=== PATIENT | male | born 1995 | race Caucasian/White ===

== ENCOUNTER 2022-04-14 11:24 | Observation (INO) ==
[2022-04-14] MEDS ORDERED: SODIUM CHLORIDE 0.9% 1000ML 2,000 ML IV ONE (11:43)
[2022-04-14] MEDS ORDERED: GI COCKTAIL ED USE PO ONE (11:43)
[2022-04-14] MEDS ORDERED: ONDANSETRON INJ 2 MG/ML 2 ML VIAL IV STA (11:43)
[2022-04-14] MEDS ORDERED: KETOROLAC TROMETHAMINE 15 MG/ML VIAL IV ONE (11:44)
--- NOTE | 2022-04-14 11:46 | Emergency Department Note ---
Impression & Plan Abdominal pain, Epigastric pain, Vomiting, Thickening of wall of gallbladder ED Provider Note NAME: EULOGIO FIORE AGE: 26 SEX: M : 1995 ARRIVES VIA: Walk-In INFORMANT: Patient ED PROVIDER(S): Eulogio Wadsworth DO CHIEF COMPLAINT: abdominal pain HPI: Patient is a 26-year-old male who presents to the ER for epigastric abdominal pain. Started this morning around 4 AM. Associate with nausea and vomiting. Pain is about a 7 out of 10. Is worse with eating or drinking. He describes as a burning pain in the epigastric region that comes up into his chest. Feels better after vomiting. No dysuria, urgency, or frequency. He is having a large amount of diarrhea currently. He has had this once before but is unsure of what exactly caused it. No other sick contacts. ROS: See above HPI for pertinent positives & negatives. A total of 10 systems reviewed and were otherwise negative. PAST MEDICAL HISTORY:See Below PAST SURGICAL HISTORY:See Below FAMILY HISTORY:See Below SOCIAL HISTORY:See Below HOME MEDICATIONS:See Below ALLERGIES:See Below VITALS:See Below PHYSICAL EXAMINATION: GENERAL: Sitting up in bed, alert, well appearing, well nourished, no distress, non-toxic EYE EXAM: normal conjunctiva. OROPHARYNX: mucous membranes are moist NECK: supple, no nuchal rigidity, no adenopathy, non-tender LUNGS: Clear to auscultation. Normal chest wall mechanics HEART: no murmurs, S1 normal and S2 normal ABDOMEN: abdomen soft, mild TTP in epigastric region, normo-active bowel sounds, no masses, no rebound or guarding. UPPER EXTREMITIES: upper extremities are grossly normal. LOWER EXTREMITIES: No pitting edema. NEURO EXAM: Normal sensorium, cranial nerves II-XII grossly intact, normal speech, no gross weakness of arms, no gross weakness of legs. MEDICAL DECISION MAKING: Patient is a 26-year-old male who presents ER for epigastric abdominal pain. IV was established blood work was obtained. Labs show no significant leukocytosis or anemia. BMP along with LFTs bilirubin and lipase is unremarkable. UA with small amount of ketones suggesting dehydration. He was given IV fluids x 2 L of normal saline. He was given Zofran Toradol and a GI cocktail. He did feel better. Ultrasound the gallbladder showed gallbladder wall thickening combination with dilation of CBD. This was discussed with general surgery and patient was evaluated at bedside. Dr. Thakkar recommended [facility] and he will follow and evaluate. Discussed with Juan Carlos Rizzo for further evaluation from the hospital service. Patient was updated bedside. Triage Nursing notes reviewed. Limited review of prior medical records performed Vital Signs: reviewed and remarkable for no significant abnormalities Differential diagnosis: Differential diagnoses includes but is not limited to gastritis, peptic ulcer disease, GERD, gallbladder disease, pancreatitis, small bowel obstruction, acute coronary syndrome, pericarditis, ischemic bowel, irritable bowel disease, irritable bowel syndrome, appendicitis, diverticulitis, malignancy, hernia, urinary tract infection, torsion, perforation, trauma, infectious. ER treatment provided: See below Diagnostics interpreted by me: ECG: none Cardiac Monitoring: An order was placed for continuous cardiac monitoring. The monitor shows a rate of 60 with sinus rhythm. Laboratory studies: As stated above and show below. Imaging studies: Ultrasound as described above Consultation(s): Discussed with Dr. Bush from general surgery as stated above Discussed with Juan Carlos Rizzo as stated above from the hospital service Procedures: none Critical Care: None Past Med/Surg History Social History Smoking Status: Current every day smoker Tobacco Type: E-cigarettes / Vaping Feels Safe at Home: Yes Allergies Allergies Allergy/AdvReac Type Severity Reaction Status Date / Time No Known Allergies Allergy Verified 04/14/22 15:28 Home Meds Home Medications Medication Instructions Recorded Confirmed aluminum-mag hydroxide-simethicone 5 ml PO DIRECTED PRN 04/14/22 04/14/22 400 mg-400 mg-40 mg/5 mL oral susp (Mylanta Maximum Strength) calcium carbonate 200 mg calcium 400 mg PO DIRECTED PRN 04/14/22 04/14/22 (500 mg) chewable tablet (Tums) famotidine 10 mg tablet 10 mg PO DIRECTED PRN 04/14/22 04/14/22 famotidine 10 mg tablet 10 mg PO DIRECTED PRN 04/14/22 04/14/22 (Zantac-360 (famotidine)) omeprazole magnesium 20 mg 20 mg PO BID 04/14/22 04/14/22 tablet,delayed release (Prilosec OTC) pantoprazole 20 mg tablet,delayed 20 mg PO DIRECTED 04/14/22 04/14/22 release (Protonix) simethicone 80 mg chewable tablet 80 mg PO DIRECTED PRN 04/14/22 04/14/22 Results & Data (ED) Vital Signs Vital Signs - 24 hr 04/14/22 11:25 04/14/22 12:29 Temperature 36.6 C Temperature Source Temporal Artery Scan Pulse Rate 54 L 55 L Pulse Rhythm Regular Respiratory Rate 18 16 Respiratory Effort / Characteristics Non-Labored Non-Labored Respiratory Depth Normal Normal Blood Pressure 143/88 H Blood Pressure Mean 106 Pulse Oximetry 94 95 Oxygen Delivery Method Room Air Room Air Sepsis Recent Fever Within 48 Hours No Sepsis New/Unexplained Change in Mental Status No Sepsis Action Taken by Nursing No Action Required Laboratory Data Result diagrams: 04/14/22 11:52 04/14/22 11:52 Lab Results 04/14/22 04/14/22 04/14/22 Range/Units 11:52 11:52 11:52 WBC 8.75 (4.8-10.8) K/uL RBC 5.12 (4.7-6.1) M/uL Hgb 15.1 (14.0-18.0) g/dL Hct 42.9 (42-52) % MCV 83.8 (80-100) fL MCH 29.5 (25-34) pg MCHC 35.2 (32-36) g/dL RDW Std Deviation 37.4 (36.4-46.3) fL RDW Coeff of Brandi 12.3 (11.5-14.5) % Plt Count 215 (130-400) K/uL MPV 10.7 H (7.4-10.4) fL Immature Gran % (Auto) 0.2 % Neut % (Auto) 89.7 % Lymph % (Auto) 7.7 % Alfalfa % (Auto) 2.2 % Eos % (Auto) 0.1 % Baso % (Auto) 0.1 % Neut # (Auto) 7.85 H (1.4-6.5) K/uL Lymph # (Auto) 0.67 L (1.2-3.4) K/uL Alfalfa # (Auto) 0.19 (0.11-0.59) K/uL Eos # (Auto) 0.01 (0-0.5) K/uL Baso # (Auto) 0.01 (0-0.2) K/uL Immature Gran # (Auto) 0.02 (0.00-0.02) K/uL Sodium 140 (136-145) mmol/L Potassium 3.7 (3.5-5.1) mmol/L Chloride 105 (98-107) mmol/L Carbon Dioxide 28 (21-32) mmol/L Anion Gap 7 (3-11) BUN 10 (6-23) mg/dl Creatinine 0.83 (0.6-1.4) mg/dl Est Cr Clr Drug Dosing 125.7 ml/min Est GFR ( Amer) 139.8 ml/min Est GFR (Non-Af Amer) 120.6 ml/min BUN/Creatinine Ratio 12.0 (10-20) Glucose 123 H (70-99(Fasting)) mg/dl Calcium 9.9 (8.5-10.1) mg/dl Total Bilirubin 0.8 (0.2-1.0) mg/dl AST 15 (13-39) U/L ALT 15 (7-52) U/L Alkaline Phosphatase 55 (34-104) U/L Total Protein 8.2 (6.0-8.3) gm/dl Albumin 5.4 H (3.4-5.0) gm/dl Globulin 2.8 (2.5-4.0) gm/dl Albumin/Globulin Ratio 1.9 (0.9-2) Lipase 15 (11-82) U/L Urine Color Dark Yellow Urine Appearance Clear (Clear) Urine pH 7.5 (4.5-7.5) Ur Specific [place] 1.025 (1.000-1.030) Urine Protein Negative (Negative) Urine Glucose (UA) Negative (Negative) Urine Ketones 3+ H (Negative) Urine Blood Negative (Negative) Urine Nitrite Negative (Negative) Urine Bilirubin Negative (Negative) Urine Urobilinogen Negative (Negative) Ur Leukocyte Esterase Negative (Negative) Administered Medications Discontinued Medications Al Hydrox/Mg Hydrox/Simethicone (Gi Cocktail Ed Use) 1 dose PO ONE ONE Stop: 04/14/22 11:44 Last Admin: 04/14/22 12:11 Dose: 1 dose Documented by: [id number] Sodium Chloride (Nss 1000ml) 2,000 mls @ 999 mls/hr IV .Q2H1M ONE Stop: 04/14/22 13:43 Last Infusion: 04/14/22 15:27 Dose: 0 mls/hr Documented by: [id number] Admin: 04/14/22 12:12 Dose: 999 mls/hr Documented by: [id number] Ketorolac Tromethamine (Ketorolac Tromethamine 15 Mg/Ml Vial) 15 mg IV NOW ONE Stop: 04/14/22 11:45 Last Admin: 04/14/22 12:12 Dose: 15 mg Documented by: [id number] Ondansetron HCl (Ondansetron Inj 2 Mg/Ml 2 Ml Vial) 4 mg IV NOW STA Stop: 04/14/22 11:44 Last Admin: 04/14/22 12:12 Dose: 4 mg Documented by: [id number] Imaging Data Radiologist's Impression: Gallbladder Ultrasound 04/14/22 11:43 US gallbladder CLINICAL HISTORY: epigastric abd pain TECHNIQUE: Multiple real-time sonographic images of the right upper quadrant were obtained. Comparison: None available at the time of this dictation. FINDINGS: The liver is diffusely homogenous with normal contour and echogenicity. No focal mass lesions are seen. No intrahepatic ductal dilatation is seen. The gallbladder wall is edematous appearing measuring 3 mm in thickness. A sonographic Barr's sign was not elicited by the dumper central concrete mixing plant. The common duct measures 0.5 cm in diameter at the level of the hepatic artery. The visualized portions of the pancreas appear normal. Intrahepatic bile ducts appear dilated. The right kidney shows normal echogenicity, cortical thickness and renal contour. The right kidney shows no evidence of hydronephrosis or mass. No ascites or free fluid is seen in Fernández's pouch. IMPRESSION: There is mild edema of the gallbladder wall but Barr's sign is negative. No stones are seen. Intrahepatic biliary ductal dilation is seen. Findings are equivocal for acute cholecystitis. If clinical concern remains, MRCP can be p erformed. ACT 112: Negative or not required by law. Electronically signed by: Howard Sauceda M.D. 04/14/2022 2:31 PM Discharge Plan Visit Data Chief Complaint: GI Assessment Stated Complaint: HAVING BAD HEART BURN, VOMITING ED Provider: Eulogio Wadsworth Discharge Problem: Abdominal pain, Epigastric pain, Vomiting, Thickening of wall of gallbladder Forms Stand Alone Forms: My [employer] Prescriptions Prescriptions: No Action famotidine 10 mg Tablet 10 mg PO DIRECTED PRN (Reason: HEARTBURN/INDIGESTION) RF: 0 famotidine [Zantac-360 (famotidine)] 10 mg Tablet 10 mg PO DIRECTED PRN (Reason: HEARTBURN/INDIGESTION) RF: 0 pantoprazole [Protonix] 20 mg Tablet,Delayed Release (Dr/Ec) 20 mg PO DIRECTED RF: 0 calcium carbonate [Tums] 200 mg calcium (500 mg) Tablet,Chewable 400 mg PO DIRECTED PRN (Reason: HEARTBURN/INDIGESTION) RF: 0 alum-mag hydroxide-simeth [Mylanta Maximum Strength] 400-400-40 mg/5 mL Suspension 5 ml PO DIRECTED PRN (Reason: HEARTBURN/INDIGESTION) RF: 0 simethicone 80 mg Tablet,Chewable 80 mg PO DIRECTED PRN (Reason: HEARTBURN/INDIGESTION) RF: 0 omeprazole magnesium [Prilosec OTC] 20 mg Tablet,Delayed Release (Dr/Ec) 20 mg PO BID RF: 0 Referrals Referrals: Sarmad Barrios [Staff Physician] -
[2022-04-14 12:03] LABS: Basophils # (auto) 0.01 K/uL (0-0.2); Basophils % (auto) 0.1 %; Eosinophils # (auto) 0.01 K/uL (0-0.5); Eosinophils % (auto) 0.1 %; Hematocrit (blood only) 42.9 % (42-52); Hemoglobin 15.1 g/dL (14.0-18.0); Immature Granulocytes # (auto) 0.02 K/uL (0.00-0.02); Immature Granulocytes % (auto) 0.2 %; Lymphocytes # (auto) 0.67 K/uL (1.2-3.4); Lymphocytes % (auto) 7.7 %; Mean Corpuscular Hemoglobin 29.5 pg (25-34); Mean Corpuscular Hgb Conc 35.2 g/dL (32-36); Mean Corpuscular Volume 83.8 fL (80-100); Mean Platelet Volume 10.7 fL (7.4-10.4); Monocytes # (auto) 0.19 K/uL (0.11-0.59); Monocytes % (auto) 2.2 %; Neutrophils # (auto) 7.85 K/uL (1.4-6.5); Neutrophils % (auto) 89.7 %; Platelet Count 215 K/uL (130-400); RDW Coefficient of Variation 12.3 % (11.5-14.5); RDW Standard Deviation 37.4 fL (36.4-46.3); Red Blood Count 5.12 M/uL (4.7-6.1); White Blood Count 8.75 K/uL (4.8-10.8)
[2022-04-14 12:28] LABS: Albumin Globulin Ratio 1.9 (0.9-2); Albumin Level 5.4 gm/dl (3.4-5.0); Bilirubin,Total 0.8 mg/dl (0.2-1.0); Calcium 9.9 mg/dl (8.5-10.1); Creatinine Clr Calc Pharmacy 125.7 ml/min; Est GFR (African American) 139.8 ml/min; Est GFR (Non-African American) 120.6 ml/min; Globulin 2.8 gm/dl (2.5-4.0); Potassium 3.7 mmol/L (3.5-5.1); Total Protein 8.2 gm/dl (6.0-8.3)
[2022-04-14 12:50] LABS: Appearance Urine Clear (Clear); Bilirubin Urine Negative (Negative); Blood Urine Negative (Negative); Color Urine Dark Yellow; Glucose Urine UA Negative (Negative); Ketones Urine 3+ (Negative); Leukocyte Esterase Urine Negative (Negative); Nitrite Urine Negative (Negative); Protein Urine Negative (Negative); Specific Gravity Urine 1.025 (1.000-1.030); Urobilinogen Urine Negative (Negative); pH Urine 7.5 (4.5-7.5)
--- NOTE | 2022-04-14 14:33 | Ultrasound Report ---
US gallbladder CLINICAL HISTORY: epigastric abd pain TECHNIQUE: Multiple real-time sonographic images of the right upper quadrant were obtained. Comparison: None available at the time of this dictation. FINDINGS: The liver is diffusely homogenous with normal contour and echogenicity. No focal mass lesions are se en. No intrahepatic ductal dilatation is seen. The gallbladder wall is edematous appearing measur ing 3 mm in thickness. A sonographic Barr's sign was not elicited by the skein yarn dyer helper. The common duct measures 0.5 cm in diameter at the level of the hepatic artery. The visualized portions of the pancreas appear normal. Intrahepatic bile ducts appear dilated. The right kidney shows normal echogenicity, cortical thickness and renal contour. The right kidney sh ows no evidence of hydronephrosis or mass. No ascites or free fluid is seen in Fernández's pouch. IMPRESSION: There is mild edema of the gallbladder wall but Barr's sign is negative. No stones are seen. Intrah epatic biliary ductal dilation is seen. Findings are equivocal for acute cholecystitis. If clinical c oncern remains, MRCP can be performed. ACT 112: Negative or not required by law. Electronically signed by: Howard Sauceda M.D. 04/14/2022 2:31 PM
--- NOTE | 2022-04-14 15:44 | Surgery Consultation ---
Date of Consultation April 14, 2022 Assessment & Plan (1) Epigastric pain: pt is a 26 year-old male who presents to ER with epigastric pain with nausea , vomiting and diarrhea, IMP; epigastric pain, unlikely acute cholecystitis, Plan, recommend hospitalist admit pt to hospital, conservative treatment, consult GI to R/O gastric ulcer or colitis, order MRCP to R/O acute cholecystitis, and repeat labs in morning, will F/U, D/W ER Doctor, History of Present Illness Reason for Consultation: epigastric pain Requesting Physician: Tyson Wadsworth MD History of Present Illness CHIEF COMPLAINT: abdominal pain HPI: Patient is a 26-year-old male who presents ER for epigastric abdominal pain. Started this morning around 4 AM. Associate with nausea vomiting. Pain is about a 7 out of 10. Is worse with eating or drinking. He describes as a burning pain in the epigastric region that comes up into his chest. Feels better after vomiting. No dysuria urgency or frequency. He is having a large amount of diarrhea currently. He has had this once before but is unsure of what exactly caused it. No other sick contacts. I ( Leonard Orellana MD ) got a call for consult epigastric pain, I reviewed pt's H/P, labs, U/S study with pt, pt said he was diagnosis- IBS , possible ulcer colitis in the past, pt is still have epigastric pain, pt had same symptoms 2 months ago, the symptoms were last 2 days, pt had more 10 scopy at age of high school, Allergies Allergy/AdvReac Type Severity Reaction Status Date / Time No Known Allergies Allergy Verified 04/14/22 15:28 Home Medications Medication Instructions Recorded Confirmed Type aluminum-mag hydroxide-simethicone 5 ml PO DIRECTED PRN 04/14/22 04/14/22 History 400 mg-400 mg-40 mg/5 mL oral susp (Mylanta Maximum Strength) calcium carbonate 200 mg calcium 400 mg PO DIRECTED PRN 04/14/22 04/14/22 History (500 mg) chewable tablet (Tums) famotidine 10 mg tablet 10 mg PO DIRECTED PRN 04/14/22 04/14/22 History famotidine 10 mg tablet 10 mg PO DIRECTED PRN 04/14/22 04/14/22 History (Zantac-360 (famotidine)) omeprazole magnesium 20 mg 20 mg PO BID 04/14/22 04/14/22 History tablet,delayed release (Prilosec OTC) pantoprazole 20 mg tablet,delayed 20 mg PO DIRECTED 04/14/22 04/14/22 History release (Protonix) simethicone 80 mg chewable tablet 80 mg PO DIRECTED PRN 04/14/22 04/14/22 History Patient History Social History Smoking Status: Current every day smoker Tobacco Type: E-cigarettes / Vaping Feels Safe at Home: Yes Review of Systems Constitutional: as per Subjective / HPI Eyes: as per Subjective / HPI Respiratory: as per Subjective / HPI Cardiovascular: as per Subjective / HPI Gastrointestinal: IBS, possible ulcer colitis? Genitourinary: + as per Subjective / HPI Musculoskeletal: as per Subjective / HPI Neurologic: as per Subjective / HPI Psychiatric: as per Subjective / HPI Endocrine: as per Subjective / HPI Hematologic / Lymphatic: as per Subjective / HPI Physical Exam Constitutional: WD/WN, vitals as above no distress, Eyes: PERRL, conjunctivae normal, anicteric sclerae Neck: trachea midline, no thyromegaly Respiratory: normal respiratory effort, lungs clear to auscultation Cardiovascular: RRR, no murmur, no edema Gastrointestinal (Abdomen): soft, mild tenderness at Epigastric area, no rebound pain, no distend, BS + Musculoskeletal: no cyanosis or clubbing, extremities motor strength 5/5 Neurologic: patellar DTR's 2+ bilat, sensation intact Psychiatric: A+Ox3, euthymic affect Results & Data ([facility]) Vital Signs (Past 12 Hours) Vital Signs Temp Pulse Resp BP Pulse Ox 04/14/22 12:29 55 L 16 95 04/14/22 11:25 36.6 C 54 L 18 143/88 H 94 Laboratory Results Abnormal lab results 04/14/22 04/14/22 04/14/22 Range/Units 11:52 11:52 11:52 MPV 10.7 H (7.4-10.4) fL Neut # (Auto) 7.85 H (1.4-6.5) K/uL Lymph # (Auto) 0.67 L (1.2-3.4) K/uL Glucose 123 H (70-99(Fasting)) mg/dl Albumin 5.4 H (3.4-5.0) gm/dl Urine Ketones 3+ H (Negative) Diagnostic Findings US gallbladder CLINICAL HISTORY: epigastric abd pain TECHNIQUE: Multiple real-time sonographic images of the right upper quadrant were obtained. Comparison: None available at the time of this dictation. FINDINGS: The liver is diffusely homogenous with normal contour and echogenicity. No focal mass lesions are seen. No intrahepatic ductal dilatation is seen. The gallbladder wall is edematous appearing measuring 3 mm in thickness. A sonographic Barr's sign was not elicited by the cured meat packing supervisor. The common duct measures 0.5 cm in diameter at the level of the hepatic artery. The visualized portions of the pancreas appear normal. Intrahepatic bile ducts appear dilated. The right kidney shows normal echogenicity, cortical thickness and renal co ntour. The right kidney shows no evidence of hydronephrosis or mass. No ascites or free fluid is seen in Fernández's pouch. IMPRESSION: There is mild edema of the gallbladder wall but Barr's sign is negative. No stones are seen. Intrahepatic biliary ductal dilation is seen. Findings are equivocal for acute cholecystitis. If clinical concern remains, MRCP can be performed.
--- NOTE | 2022-04-14 16:12 | History & Physical Report ---
Date of Service April 14, 2022 Assessment & Plan (1) GERD (gastroesophageal reflux disease): Plan: Taking a large amount of antacids which is likely making this worse longer term. Also taking two PPIs. Patient counselled on management of GERD. Suspect underlying gastritis +/- gastric ulcer Possibly acutely may get worse once GI cocktail wears off due to Toradol given in the ER Clear liquids now, NPO after midnight Given severity of pain and dysphagia will consult GI to consider EGD during admission, NPO after midnight (2) Thickening of wall of gallbladder: Plan: Low suspicion of acute cholecystitis since majority of his pain is epigastric with longstanding history of GERD and normal WBC/LFTs Repeat CBC/CMP with AM labs HIDA scan as discussed with surgery - this shouldn't delay EGD however given low suspicion of acute cholecystitis (3) Abdominal pain: Plan: Suspect due to GERD as above Plan: VTE Prophylaxis - low risk Diet - clear liquid, NPO after midnight Disposition - observation status to med/surg Admission and Anticipated Discharge Date Admission Date: April 14, 2022 History of Present Illness Chief Complaint: Chest and abdominal pain Primary Care Provider: DERICK PCP Tyson Donis 26 year old male who presents to the ER with severe chest and abdominal pain. He reports pain started on waking him up this morning. So severe he felt he couldn't catch his breath with associated nausea and vomiting. Associated acid taste in the back of his mouth. He felt this was the worst reflux pain he has ever had to the point he was in tears. This is on a background of longstanding GERD requiring multiple EGDs in the past although none recently. He takes Tums and Mylanta regularly for year. The last 1.5-2 months his heartburn has been getting progressively worse again and he was taking omeprazole and famotidine over the counter in addition to antacids. His symptoms became worse and he switched taking the famotidine for pantoprazole 40mg PO BID (in addition to the omeprazole and antacids). He reports the pain is worse with spicy foods. He has associated dysphagia with thick foods. Also occasionally coughing up black phlegm. In the ER he underwent RUQ US showed mild edema of the gallbladder wall equivocal for acute cholecystitis. General surgery were consulted and felt this was unlikely acute cholecystitis. He was given Toradol for the pain and GI cocktail. He was referred to medicine for admission and ongoing management of ? cholecystitis. Allergies Allergy/AdvReac Type Severity Reaction Status Date / Time No Known Allergies Allergy Verified 04/14/22 15:28 Home Medications Medication Instructions Recorded Confirmed Type aluminum-mag hydroxide-simethicone 5 ml PO DIRECTED PRN 04/14/22 04/14/22 History 400 mg-400 mg-40 mg/5 mL oral susp (Mylanta Maximum Strength) calcium carbonate 200 mg calcium 400 mg PO DIRECTED PRN 04/14/22 04/14/22 History (500 mg) chewable tablet (Tums) famotidine 10 mg tablet 10 mg PO DIRECTED PRN 04/14/22 04/14/22 History famotidine 10 mg tablet 10 mg PO DIRECTED PRN 04/14/22 04/14/22 History (Zantac-360 (famotidine)) omeprazole magnesium 20 mg 20 mg PO BID 04/14/22 04/14/22 History tablet,delayed release (Prilosec OTC) pantoprazole 20 mg tablet,delayed 20 mg PO DIRECTED 04/14/22 04/14/22 History release (Protonix) simethicone 80 mg chewable tablet 80 mg PO DIRECTED PRN 04/14/22 04/14/22 History Past Med/Surg History Social History Smoking Status: Never smoker Tobacco Type: E-cigarettes / Vaping Hx Alcohol Use: No Hx Substance Use: Yes Preferred Language: Hungarian Communication Ability: Effective Motorcycle Police Officer Required: No Beliefs That Will Affect Care: None Current Living Situation: Alone Other Information That Helps Us Care for You: No Feels Safe at Home: Yes Safety Concerns: Feels Safe At This Time Review of Systems Review of Systems: All systems reviewed & are unremarkable except as noted in HPI & below Physical Exam Constitutional: WD/WN, vitals as above Respiratory: normal respiratory effort, lungs clear to auscultation Gastrointestinal (Abdomen): Inspection/Auscultation: normal bowel sounds Percussion/Palpation: + abdomen tender (mainly epigastric, however also RUQ on inspiration) and abdomen soft; no guarding and abdomen not rigid Musculoskeletal: no cyanosis or clubbing, extremities motor strength 5/5 Skin: no rashes, warm and dry Psychiatric: A+Ox3, euthymic affect Results & Data Results & Data ([facility]) Vital Signs (Past 12 Hours) Vital Signs Temp Pulse Resp BP Pulse Ox 04/14/22 12:29 55 L 16 95 04/14/22 11:25 36.6 C 54 L 18 143/88 H 94 Laboratory Results Abnormal lab results 04/14/22 04/14/22 04/14/22 Range/Units 11:52 11:52 11:52 MPV 10.7 H (7.4-10.4) fL Neut # (Auto) 7.85 H (1.4-6.5) K/uL Lymph # (Auto) 0.67 L (1.2-3.4) K/uL Glucose 123 H (70-99(Fasting)) mg/dl Albumin 5.4 H (3.4-5.0) gm/dl Urine Ketones 3+ H (Negative) Diagnostic Findings US gallbladder CLINICAL HISTORY: epigastric abd pain TECHNIQUE: Multiple real-time sonographic images of the right upper quadrant were obtained. Comparison: None available at the time of this dictation. FINDINGS: The liver is diffusely homogenous with normal contour and echogenicity. No focal mass lesions are seen. No intrahepatic ductal dilatation is seen. The gallbladder wall is edematous appearing measuring 3 mm in thickness. A sonographic Barr's sign was not elicited by the trend investigator. The common duct measures 0.5 cm in diameter at the level of the hepatic artery. The visualized portions of the pancreas appear normal. Intrahepatic bile ducts appear dilated. The right kidney shows normal echogenicity, cortical thickness and renal contour. The right kidney shows no evidence of hydronephrosis or mass. No ascites or free fluid is seen in Fernández's pouch. IMPRESSION: There is mild edema of the gallbladder wall but Barr's sign is negative. No stones are seen. Intrahepatic biliary ductal dilation is seen. Findings are equivocal for acute cholecystitis. If clinical concern remains, MRCP can be performed. Medications Administered ER Medications Given: NSS 2L bolus Ondansetron 4mg IV GI cocktail Toradol 15mg IV Code Status & VTE Plan Code Status Full VTE Prophylaxis Plan VTE Prophylaxis will be ordered: No PG Care Time/CCT Total # of Minutes Spent Total Time Spent with Patient: Total time spent is greater than 50% in coordination of care (as documented) at patient's floor/unit and/or counseling patient: Coding Level of Care Code INT OBSERVATION CARE 50M LVL 2 Diagnoses GERD (gastroesophageal reflux disease) K21.9 Abdominal pain R10.9 Abdominal location: unspecified location Thickening of wall of gallbladder K82.8 (1) Abdominal pain Abdominal location: unspecified location Qualified Code(s): R10.9 - Unspecified abdominal pain
[2022-04-14] MEDS ORDERED: FAMOTIDINE 20 MG in SYRINGE 3 ML IV STA (16:28)
[2022-04-14] MEDS ORDERED: PANTOprazole 40 MG in SYRINGE 0 ML IV STA (16:29)
[2022-04-14] MEDS: LACTATED RINGER'S 1,000 ML IV SCH (20:00)
[2022-04-14] MEDS: ALUMINUM/MAGNESIUM SUSP 72 ML, LIDOCAINE VISCOUS 2% SOLN 24 ML, BARCODE IDENTIFIER 1 EA PO PRN (21:49)
[2022-04-15] MEDS ORDERED: ACETAMINOPHEN 1,000 MG/100 ML VIAL IV PRN (03:07)
[2022-04-15] MEDS: LACTATED RINGER'S 1,000 ML IV SCH ×3 (03:25→18:37)
[2022-04-15 08:00] LABS: Basophils # (auto) 0.02 K/uL (0-0.2); Basophils % (auto) 0.4 %; Eosinophils # (auto) 0.06 K/uL (0-0.5); Eosinophils % (auto) 1.1 %; Hematocrit (blood only) 37.7 % (42-52); Hemoglobin 12.8 g/dL (14.0-18.0); Immature Granulocytes # (auto) 0.02 K/uL (0.00-0.02); Immature Granulocytes % (auto) 0.4 %; Lymphocytes # (auto) 1.57 K/uL (1.2-3.4); Lymphocytes % (auto) 28.8 %; Mean Corpuscular Hemoglobin 28.8 pg (25-34); Mean Corpuscular Volume 84.9 fL (80-100); Mean Platelet Volume 10.8 fL (7.4-10.4); Monocytes % (auto) 9.2 %; Neutrophils # (auto) 3.29 K/uL (1.4-6.5); Neutrophils % (auto) 60.1 %; Platelet Count 170 K/uL (130-400); RDW Coefficient of Variation 12.4 % (11.5-14.5); RDW Standard Deviation 38.4 fL (36.4-46.3); Red Blood Count 4.44 M/uL (4.7-6.1); White Blood Count 5.46 K/uL (4.8-10.8)
[2022-04-15 08:24] LABS: Albumin Level 4.1 gm/dl (3.4-5.0); BUN Creatinine Ratio 13.3 (10-20); Bilirubin,Total 0.8 mg/dl (0.2-1.0); Calcium 8.8 mg/dl (8.5-10.1); Creatinine Clr Calc Pharmacy 125.7 ml/min; Est GFR (African American) 139.8 ml/min; Est GFR (Non-African American) 120.6 ml/min; Globulin 2.1 gm/dl (2.5-4.0); Potassium 3.8 mmol/L (3.5-5.1); Total Protein 6.2 gm/dl (6.0-8.3)
[2022-04-15] MEDS ORDERED: FAMOTIDINE 20 MG in SYRINGE 3 ML IV SCH (09:00)
--- NOTE | 2022-04-15 09:41 | Nuclear Medicine Report ---
NUCLEAR MEDICINE HEPATOBILIARY SCAN CLINICAL HISTORY: Right upper quadrant pain, nausea and vomiting. Evaluate for acute cholecystitis. COMPARISON: Right upper quadrant ultrasound April 14, 2022. TECHNIQUE: 5 mCi of technetium 99m Choletec IV was injected at 8:29 AM on April 15, 2022. Immediatel y following injection, imaging of the abdomen was carried out for 60 minutes in the anterior projecti on. FINDINGS: Hepatic uptake of radiotracer is prompt and homogeneous. Activity is identified within the gallbladder at 10 minutes. Common bile duct and small bowel activity is noted at 40 minutes. There i s no evidence for acute cholecystitis. IMPRESSION: No evidence for acute cholecystitis. ACT 112: Negative or not required by law. Electronically signed by: Romaine Saucedo M.D. 04/15/2022 9:39 AM
--- NOTE | 2022-04-15 09:47 | Communication Note ---
Date of Service: April 15, 2022 GI consulted for 26 yo male with GERD and gallbladder thickening on US imaging. Patient was off the floor for testing during GI rounds this AM. GI consulted for assessment of long-term GERD. Patient admitted due to abdominal pain and chest discomfort. He reportedly complained of this being the worst pain he has ever experienced. He reportedly has had EGDs in the past before, though I do not have access to these and was unable to ask the patient since he was off the floor. He had a RUQ US that showed mild edema of the gallbladder. Gen surg recommended HIDA scan. Would advise the followin) Protonix 40 mg BID 2) Famotidine 20 mg BID 3) Carafate 1 gm four times daily before meals and at bedtime 4) Outpatient EGD for further evaluation as patient does not have emergent indication for inpatient EGD 5) Gallbladder work-up as directed by general surgery 6) Would request that it be determined who patient's GI is as well as results of his previous EGDs
[2022-04-15] MEDS: PANTOprazole 40 MG in SYRINGE 0 ML IV SCH ×2 (11:21→20:11)
--- NOTE | 2022-04-15 13:05 | Hospitalist Progress Note ---
Date of Service April 15, 2022 Assessment & Plan (1) GERD (gastroesophageal reflux disease): Plan: Tyson is a 26-year-old male with a past medical history of GERD, abdominal pain, and concern for food allergy who was last worked up by GI in 2008 and who presented with worsened nausea/vomiting/abdominal pain in the setting of numerous antacid and PPI use. Abdominal pain, suspected GERD on admission Prior to admission patient taking large amounts of antacids, dual PPIs. History of GERD Gastritis +/- gastric ulcer suspected on admission HIDA scan negative for cholecystitis below Patient denies melena or bright red blood per rectum, reports ribbony brown stool with mucus Acute hemoglobin drop from 15.1-12.8. No clinical signs of bleeding. Occult blood pending did receive 2 L of volume resuscitation and additional LR at 125 an hour, ?Dilutional drop. Will trend. - GI consulted on admission. Recommended for Protonix 40 twice daily, famotidine 20 mg twice daily, Carafate 1 g 4 times daily before meals and at bedtime, completing gallbladder work-up. [facility] recommended further care by GI group who had previously been established with patient's, patient was established with [facility] in 2008. At bedside today patient with spasms of worsening pain, abdomen is soft and without involuntary muscle spasms or tympany. KUB ordered, did receive Toradol on admission may have somewhat worsened discomfort. Pain not adequately controlled and not appropriate for discharge at this time. Can continue to trial sucralfate and PPI per recs, however if patient does not have meaningful improvement would hold Carafate and revisit EGD with [facility] who has seen pt previously EGD reevaluation. May have clears today and NPO at midnight with AM reassessment (2) Thickening of wall of gallbladder: Plan: - Low suspicion of acute cholecystitis since majority of his pain is epigastric with longstanding history of GERD and normal WBC/LFTs HIDA scan obtained following admitting discussion with surgery, this did not show evidence of acute cholecystitis Continue GI evaluation as above (3) Abdominal pain: Plan: As previously noted Plan: VTE Prophylaxis - low risk Diet - clear liquid Disposition - observation status to med/surg Admission and Anticipated Discharge Date Admission Date: April 14, 2022 Subjective Patient had HIDA scan on initial morning visit. On afternoon reevaluation patient reports that he is having waves of pain in his epigastrium. Tearful affect. Ports this is similar to what he has had in the past and these waves seem to last 3 to 4 hours the day prior to admission. Pain is mostly in the epigastrium, with some pain at the right upper quadrant of the abdomen. He thinks that the lidocaine did help with this, but it is coming back and is equally severe if not worse than when he came for admission. He denies black or bloody bowel movements, as generally ribbony and brown bowel movements. Is not had anything to eat today as has been n.p.o. Has not yet discussed case with surgery, is aware that his HIDA scan looked normal. Denies fever, chills, sweats, difficulty breathing, shortness of breath. Endorses dysphagia to solids and without liquids previously, has not eaten since here so unsure if this is changed. Review of Systems Review of Systems: All systems reviewed & are unremarkable except as noted in Subjective Physical Exam Physical Exam: General: A&Ox3. Tearful affect, appears uncomfortable. Cooperative HEENT: Atraumatic, normocephalic. Vision and hearing grossly intact. Pulm: CTAB A&P. -wheezes, -rales, -rhonchi. Symmetrical chest rise. No increase in work of breathing. No respiratory distress. Cardiac: RRR, -mrg. Radial pulses intact and symmetrical. Abdominal: Endorses tenderness to palpation at epigastrium and some cramp-like pain in his right upper quadrant. Denies left lower quadrant, left quadrant pain. Results & Data Results & Data ([facility]) Vital Signs (Past 12 Hours) Vital Signs Temp Pulse Resp BP Pulse Ox 04/15/22 07:41 36.6 C 56 L 18 115/61 99 PG Care Time/CCT Total # of Minutes Spent Total Time Spent with Patient: Total time spent is greater than 50% in coordination of care (as documented) at patient's floor/unit and/or counseling patient: Coding Level of Care Code 81844 Subseq Obs Care Lvl 2 Diagnoses GERD (gastroesophageal reflux disease) K21.9 Thickening of wall of gallbladder K82.8 Abdominal pain R10.9 Abdominal location: unspecified location (1) Abdominal pain Abdominal location: unspecified location Qualified Code(s): R10.9 - Unspecified abdominal pain
[2022-04-15] MEDS: SUCRALFATE 1 GM/10 ML UDC PO SCH ×3 (13:59→20:11)
--- NOTE | 2022-04-15 14:11 | XRay Report ---
KUB CLINICAL HISTORY: Epigastric abdominal pain. FINDINGS: 2 AP, portable, supine abdominal radiographs are correlated with abdominal ultrasound dated 04/14/2022. There is a nonobstructed abdominal bowel gas pattern. No evidence of intraperitoneal free air is seen on these supine images. There are no abnormal abdominal calcifications. The bony structu res appear intact. The lung bases are clear as imaged. IMPRESSION: No acute abnormality is identified. Electronically signed by: Ananth Brown M.D. 04/15/2022 2:09 PM
--- NOTE | 2022-04-15 15:53 | Surgery Progress Note ---
Date of Service April 15, 2022 Assessment & Plan (1) Epigastric pain: Plan: HIDA scan negative for acute cholecystitis No leukocytosis Continues to have severe epigastric abdominal pain with severe reflux and GERD causing some chest pain and difficulty breathing Family history of ulcerative colitis in his mother History of prior GI work-up in 2007 with upper endoscopy colonoscopy as well as small bowel pill capsule. Has not had further evaluation by gastroenterology and has had significant issues with severe GERD, black mucus in stools and and with vomiting. Plan: There is no indication for laparoscopic cholecystectomy at this time. Believe his epigastric abdominal pain could be due to a gastric ulcer versus severe gastritis versus severe GERD. Highly recommend GI to evaluate for possible upper endoscopy during this admission. Continue current medical management. Our service is signing off please call with any questions or concerns. Dr. Orellana has seen and examined patient and agrees with above. Admission and Anticipated Discharge Date Admission Date: April 14, 2022 Subjective Had another episode of severe epigastric abdominal pain and severe reflux earlier this morning that he states it was difficult to breathe. Passed some gas after this episode of pain but no bowel movement. Has a history of severe reflux and GERD and last endoscopy was in 2007. He also has a history of prior colonoscopy in 2007 as well as small bowel pill capsule in 2007 and followed with [facility]. Has not followed with gastroenterology since this time. He also notes that his mother has a history of ulcerative colitis. Physical Exam Constitutional: WD/WN, vitals as above + thin; no acute distress and not ill appearing Neck: normal visual inspection and trachea midline Respiratory: normal respiratory effort; no respiratory distress Gastrointestinal (Abdomen): Inspection/Auscultation: abdomen normal to inspection; abdomen not distended Percussion/Palpation: + abdomen tender (Epigastric) and abdomen soft; no guarding and abdomen not rigid Skin: no rashes, warm and dry no jaundice Psychiatric: Orientation: alert and oriented x 3 Affect: + tearful affect Results & Data ([facility]) Vital Signs (Past 12 Hours) Vital Signs Temp Pulse Resp BP Pulse Ox 04/15/22 15:47 18 135/73 18 L 04/15/22 07:41 36.6 C 56 L 18 115/61 99 Laboratory Results 04/15/22 04/15/22 04/15/22 Range/Units 15:42 07:27 07:27 WBC 5.46 (4.8-10.8) K/uL RBC 4.44 L (4.7-6.1) M/uL Hgb Pending 12.8 L (14.0-18.0) g/dL Hct Pending 37.7 L (42-52) % MCV 84.9 (80-100) fL MCH 28.8 (25-34) pg MCHC 34.0 (32-36) g/dL RDW Std Deviation 38.4 (36.4-46.3) fL RDW Coeff of Brandi 12.4 (11.5-14.5) % Plt Count 170 (130-400) K/uL MPV 10.8 H (7.4-10.4) fL Immature Gran % (Auto) 0.4 % Neut % (Auto) 60.1 % Lymph % (Auto) 28.8 % Hardee % (Auto) 9.2 % Eos % (Auto) 1.1 % Baso % (Auto) 0.4 % Neut # (Auto) 3.29 (1.4-6.5) K/uL Lymph # (Auto) 1.57 (1.2-3.4) K/uL Hardee # (Auto) 0.50 (0.11-0.59) K/uL Eos # (Auto) 0.06 (0-0.5) K/uL Baso # (Auto) 0.02 (0-0.2) K/uL Immature Gran # (Auto) 0.02 (0.00-0.02) K/uL Sodium 140 (136-145) mmol/L Potassium 3.8 (3.5-5.1) mmol/L Chloride 108 H (98-107) mmol/L Carbon Dioxide 28 (21-32) mmol/L Anion Gap 4 (3-11) BUN 11 (6-23) mg/dl Creatinine 0.83 (0.6-1.4) mg/dl Est Cr Clr Drug Dosing 125.7 ml/min Est GFR ( Amer) 139.8 ml/min Est GFR (Non-Af Amer) 120.6 ml/min BUN/Creatinine Ratio 13.3 (10-20) Glucose 87 (70-99(Fasting)) mg/dl Calcium 8.8 (8.5-10.1) mg/dl Total Bilirubin 0.8 (0.2-1.0) mg/dl AST 11 L (13-39) U/L ALT 10 (7-52) U/L Alkaline Phosphatase 38 (34-104) U/L Total Protein 6.2 D (6.0-8.3) gm/dl Albumin 4.1 (3.4-5.0) gm/dl Globulin 2.1 L (2.5-4.0) gm/dl Albumin/Globulin Ratio 2.0 (0.9-2) SARS-CoV-2, RNA, NAAT (NEGATIVE) 04/14/22 Range/Units 16:24 WBC (4.8-10.8) K/uL RBC (4.7-6.1) M/uL Hgb (14.0-18.0) g/dL Hct (42-52) % MCV (80-100) fL MCH (25-34) pg MCHC (32-36) g/dL RDW Std Deviation (36.4-46.3) fL RDW Coeff of Brandi (11.5-14.5) % Plt Count (130-400) K/uL MPV (7.4-10.4) fL Immature Gran % (Auto) % Neut % (Auto) % Lymph % (Auto) % Hardee % (Auto) % Eos % (Auto) % Baso % (Auto) % Neut # (Auto) (1.4-6.5) K/uL Lymph # (Auto) (1.2-3.4) K/uL Hardee # (Auto) (0.11-0.59) K/uL Eos # (Auto) (0-0.5) K/uL Baso # (Auto) (0-0.2) K/uL Immature Gran # (Auto) (0.00-0.02) K/uL Sodium (136-145) mmol/L Potassium (3.5-5.1) mmol/L Chloride (98-107) mmol/L Carbon Dioxide (21-32) mmol/L Anion Gap (3-11) BUN (6-23) mg/dl Creatinine (0.6-1.4) mg/dl Est Cr Clr Drug Dosing ml/min Est GFR ( Amer) ml/min Est GFR (Non-Af Amer) ml/min BUN/Creatinine Ratio (10-20) Glucose (70-99(Fasting)) mg/dl Calcium (8.5-10.1) mg/dl Total Bilirubin (0.2-1.0) mg/dl AST (13-39) U/L ALT (7-52) U/L Alkaline Phosphatase (34-104) U/L Total Protein (6.0-8.3) gm/dl Albumin (3.4-5.0) gm/dl Globulin (2.5-4.0) gm/dl Albumin/Globulin Ratio (0.9-2) SARS-CoV-2, RNA, NAAT NEGATIVE (NEGATIVE) Diagnostic Findings NUCLEAR MEDICINE HEPATOBILIARY SCAN CLINICAL HISTORY: Right upper quadrant pain, nausea and vomiting. Evaluate for acute cholecystitis. COMPARISON: Right upper quadrant ultrasound April 14, 2022. TECHNIQUE: 5 mCi of technetium 99m Choletec IV was injected at 8:29 AM on April 15, 2022. Immediately following injection, imaging of the abdomen was carried out for 60 minutes in the anterior projection. FINDINGS: Hepatic uptake of radiotracer is prompt and homogeneous. Activity is identified within the gallbladder at 10 minutes. Common bile duct and small bowel activity is noted at 40 minutes. There is no evidence for acute cholecystitis. IMPRESSION: No evidence for acute cholecystitis.
[2022-04-15 16:07] LABS: Hematocrit (blood only) 36.9 % (42-52); Hemoglobin 12.8 g/dL (14.0-18.0)
[2022-04-15] MEDS: FAMOTIDINE 20 MG in SYRINGE 3 ML IV SCH (20:11)
[2022-04-15] MEDS: ALUMINUM/MAGNESIUM SUSP 72 ML, LIDOCAINE VISCOUS 2% SOLN 24 ML, BARCODE IDENTIFIER 1 EA PO PRN (22:48)
[2022-04-16] MEDS ORDERED: SIMETHICONE 80 MG CHEW PO ONE (00:54)
[2022-04-16] MEDS: LACTATED RINGER'S 1,000 ML IV SCH ×3 (02:23→19:08)
[2022-04-16 06:43] LABS: Basophils # (auto) 0.03 K/uL (0-0.2); Basophils % (auto) 0.6 %; Eosinophils # (auto) 0.11 K/uL (0-0.5); Eosinophils % (auto) 2.2 %; Hematocrit (blood only) 35.3 % (42-52); Hemoglobin 12.1 g/dL (14.0-18.0); Lymphocytes % (auto) 36.8 %; Mean Corpuscular Hemoglobin 28.9 pg (25-34); Mean Corpuscular Hgb Conc 34.3 g/dL (32-36); Mean Corpuscular Volume 84.4 fL (80-100); Mean Platelet Volume 10.8 fL (7.4-10.4); Monocytes # (auto) 0.39 K/uL (0.11-0.59); Neutrophils # (auto) 2.56 K/uL (1.4-6.5); Neutrophils % (auto) 52.4 %; Platelet Count 167 K/uL (130-400); RDW Coefficient of Variation 12.2 % (11.5-14.5); RDW Standard Deviation 37.5 fL (36.4-46.3); Red Blood Count 4.18 M/uL (4.7-6.1); White Blood Count 4.89 K/uL (4.8-10.8)
[2022-04-16 07:25] LABS: BUN Creatinine Ratio 9.8 (10-20); Calcium 8.5 mg/dl (8.5-10.1); Creatinine Clr Calc Pharmacy 127.3 ml/min; Est GFR (African American) 140.5 ml/min; Est GFR (Non-African American) 121.2 ml/min; Potassium 3.6 mmol/L (3.5-5.1)
[2022-04-16] MEDS: PANTOprazole 40 MG in SYRINGE 0 ML IV SCH ×2 (08:13→20:01)
[2022-04-16] MEDS: FAMOTIDINE 20 MG in SYRINGE 3 ML IV SCH ×2 (08:21→20:49)
--- NOTE | 2022-04-16 09:19 | Hospitalist Progress Note ---
Date of Service April 16, 2022 Assessment & Plan (1) GERD (gastroesophageal reflux disease): Plan: Tyson is a 26-year-old male with a past medical history of GERD, abdominal pain, and concern for food allergy who was last worked up by GI in 2008 and who presented with worsened nausea/vomiting/abdominal pain in the setting of numerous antacid and PPI use. Abdominal pain, . History of GERD Gastritis +/- gastric ulcer suspected on admission HIDA scan negative for cholecystitis Patient denies melena, reports ribbony brown stool with mucus Acute hemoglobin drop from 15.1-12.8. Dilutional drop. no obvious source of blood loss - GI consulted Recommended for Protonix 40 twice daily, famotidine 20 mg twice daily, Carafate 1 g 4 times daily before meals and at bedtime once again patient with spasms of worsening pain, radiating to midscapular pain differential could be esophageal spasm, will trial one dose isosorbide, prn morphine for back up (2) Thickening of wall of gallbladder: Plan: - Low suspicion of acute cholecystitis since majority of his pain is epigastric with longstanding history of GERD and normal WBC/LFTs HIDA scan obtained following admitting discussion with surgery, this did not show evidence of acute cholecystitis Continue GI evaluation (3) Abdominal pain: Plan: As previously noted Plan: VTE Prophylaxis - low risk Diet - clear liquid Disposition - observation status to med/surg Admission and Anticipated Discharge Date Admission Date: April 14, 2022 Subjective pt explains dyspeptic symptoms with back spasms, maybe esophageal spasms, also can be stress induced. also some food sensitivity and diarrhea after eating since admission, maybe a candidate for egd Review of Systems Review of Systems: Mild to moderate distress during attacks and fatigue no headache, no visual changes no speech or swallowing issues no chest pain, pressure or palpitations no shortness of breath, cough or wheezes epigastric and substernal chest pain at rest, radiating to back no dysuria, hematuria or frequency no focal joint pain or swelling mid scapular back pain, no CVA tenderness or radicular pain no bruising, bleeding or rashes no focal signs of weakness or numbness or altered sensation no complaints of anxiety or depression.. Physical Exam Physical Exam: The patient appeared well nourished and normally developed. Vital signs as documented. Head exam is normocephalic atraumatic Neck is without JVD, thyromegaly, or carotid bruits. Lungs are clear to auscultation, no focal loss of breath sounds Cardiac exam, Rhythm is regular.. No murmurs, rubs or gallops. Abdominal exam reveals normal bowel sounds, soft non tender, no masses( this was not while having an attack) Extremities are nonedematous and both pedal pulses are present Neurologic exam is alert and oriented, no focal loss of strength or sensation Skin is without bruises or rashes Psychologically is without concerns for anxiety or depression.. Results & Data Results & Data ([facility]) Vital Signs (Past 12 Hours) Vital Signs Temp Pulse Resp BP Pulse Ox 04/16/22 07:37 97.9 F 55 L 14 115/59 L 99 04/15/22 23:01 98.1 F 48 L 18 126/73 99 PG Care Time/CCT Total # of Minutes Spent Total Time Spent with Patient: Total time spent is greater than 50% in coordination of care (as documented) at patient's floor/unit and/or counseling patient: Coding Level of Care Code 66831 Subseq Hosp Care Lvl 2 Diagnoses GERD (gastroesophageal reflux disease) K21.9 Thickening of wall of gallbladder K82.8 Abdominal pain R10.9 Abdominal location: unspecified location (1) Abdominal pain Abdominal location: unspecified location Qualified Code(s): R10.9 - Unspecified abdominal pain
[2022-04-16] MEDS: ALUMINUM/MAGNESIUM SUSP 72 ML, LIDOCAINE VISCOUS 2% SOLN 24 ML, BARCODE IDENTIFIER 1 EA PO PRN (15:25)
[2022-04-16] MEDS ORDERED: ISOSORBIDE DINITRATE 10 MG TAB PO ONE (17:33)
[2022-04-16] MEDS ORDERED: OPTIRAY 320 125ml IV ONE (18:22)
[2022-04-16] MEDS: ONDANSETRON INJ 2 MG/ML 2 ML VIAL IV PRN (19:08)
--- NOTE | 2022-04-16 19:09 | CT Scan Report ---
CT ANGIOGRAPHY OF THE CHEST, PULMONARY EMBOLUS PROTOCOL CLINICAL HISTORY: PE, also comment on aorta, mid scapular back pain COMPARISON STUDY: No previous studies for comparison. TECHNIQUE: Following IV administration of 120 mL of Optiray, helical axial images of the chest were o btained utilizing the pulmonary embolus protocol. Maximal intensity projections and sagittal and cor onal reformats were viewed on an independent 3D workstation. IV contrast was administered without co mplication. Automated exposure control was utilized for the study. A dose lowering technique was ut ilized adhering to the principles of ALARA. CT DOSE: 271.38 mGy.cm FINDINGS: No pulmonary emboli are identified. The size of the heart is within normal limits. There i s no pericardial effusion. There is borderline dilatation of the aortic root at the level of the sin uses of Valsalva, measuring approximately 4 cm. Thoracic aorta is suboptimally assessed given subopti mal opacification but there is no dissection is identified. There is no pneumothorax or pleural effus ion. There is no consolidation to suggest pneumonia. Central airways are patent. No acute fracture is identified within visualized skeletal structures. Note is made of a small amount of fluid and infilt ration within the right upper quadrant, along the right hepatic lobe and adjacent to the right adrena l gland. This is partially imaged on this exam. IMPRESSION: 1. No pulmonary emboli identified. 2. Borderline dilatation of the aortic root at the level the sinuses of Valsalva, measuring 4 cm. Tho racic aorta suboptimally opacified but no dissection identified. 3. Small amount of fluid and stranding within the right upper quadrant, partially imaged on this exam . This could be assessed with a CT of the abdomen and pelvis. ACT 112: Negative or not required by law. Electronically signed by: Romaine Saucedo M.D. 04/16/2022 7:07 PM
[2022-04-16] MEDS ORDERED: MELATONIN 3 MG TAB PO PRN (22:07)
[2022-04-16] MEDS ORDERED: MELATONIN 3 MG TAB PO ONE (22:09)
[2022-04-16] MEDS: MoRPHine SULFATE 2 MG/ML CARP IV PRN (22:11)
[2022-04-17] MEDS: LACTATED RINGER'S 1,000 ML IV SCH ×2 (01:33→09:37)
[2022-04-17] MEDS: FAMOTIDINE 20 MG in SYRINGE 3 ML IV SCH (08:03)
[2022-04-17] MEDS: PANTOprazole 40 MG in SYRINGE 0 ML IV SCH (08:03)
[2022-04-17 08:29] LABS: White Blood Count 4.35 K/uL (4.8-10.8)
[2022-04-17 08:30] LABS: Hemoglobin 12.9 g/dL (14.0-18.0); Mean Corpuscular Hgb Conc 34.9 g/dL (32-36); Mean Corpuscular Volume 83.1 fL (80-100); Mean Platelet Volume 10.9 fL (7.4-10.4); Platelet Count 184 K/uL (130-400); RDW Coefficient of Variation 12.2 % (11.5-14.5); RDW Standard Deviation 37.1 fL (36.4-46.3); Red Blood Count 4.45 M/uL (4.7-6.1)
[2022-04-17 08:58] LABS: Albumin Globulin Ratio 2.1 (0.9-2); Albumin Level 4.5 gm/dl (3.4-5.0); BUN Creatinine Ratio 9.3 (10-20); Bilirubin,Total 0.8 mg/dl (0.2-1.0); Calcium 9.2 mg/dl (8.5-10.1); Creatinine Clr Calc Pharmacy 121.4 ml/min; Est GFR (African American) 137.7 ml/min; Est GFR (Non-African American) 118.8 ml/min; Globulin 2.1 gm/dl (2.5-4.0); Potassium 3.7 mmol/L (3.5-5.1); Total Protein 6.6 gm/dl (6.0-8.3)
[2022-04-17] MEDS: ONDANSETRON INJ 2 MG/ML 2 ML VIAL IV PRN (09:38)
--- NOTE | 2022-04-17 09:42 | Gastrointestinal Consultation ---
Date of Consultation April 17, 2022 Assessment & Plan (1) GERD (gastroesophageal reflux disease): -Can do EGD today, though patient is currently on maximum therapy with Protonix 40 mg BID, Carafate 1 gm four times daily, & Famotidine 20 mg BID. (2) Abdominal pain: -If EGD is negative, consider MRCP as previously recommended by radiology due to intrahepatic biliary ductal dilatation. Supervising Physician Co-Signing Physician Notes Agree with BEN Schilling as above Gen: A+O x3, cooperative Chest: CTA B/L CVS: RRR Abd: Soft, tender epigastric area, ND, +BS Ext: -c/c/e Continue current therapy with Pantoprazole, Famotidine and Carafate EGD now Further recommendations to follow History of Present Illness Reason for Consultation: GERD Attending Physician: Xander Caba MD History of Present Illness GI consulted for 26 yo male with GERD and poor po intake. Patient reports difficulty eating solids & liquids (no dysphagia--just cannot tolerate food). He had an extensive GI work-up in the past including an EGD, Colonoscopy, & VCE. He is currently admitted and was to have an outpatient EGD on Thursday but reports he cannot tolerate food. He is currently managed with Protonix 40 mg BID, Famotidine 20 mg BID, Carafate 1 gm four times daily before meals and at bedtime. He uses medical marijuana daily. PMH of GERD, but otherwise denies significant medical history. He had an abdominal US that showed edema of the gallbladder. It also indicated Intrahepatic biliary ductal dilation. General surgery has evaluated the patient and has no further intervention planned. HIDA unremarkable. Chest CTA unremarkable. Allergies Allergy/AdvReac Type Severity Reaction Status Date / Time No Known Allergies Allergy Verified 04/17/22 12:14 Home Medications Medication Instructions Recorded Confirmed Type aluminum-mag hydroxide-simethicone 5 ml PO DIRECTED PRN 04/14/22 04/14/22 History 400 mg-400 mg-40 mg/5 mL oral susp (Mylanta Maximum Strength) calcium carbonate 200 mg calcium 400 mg PO DIRECTED PRN 04/14/22 04/14/22 History (500 mg) chewable tablet (Tums) famotidine 10 mg tablet 10 mg PO DIRECTED PRN 04/14/22 04/14/22 History famotidine 10 mg tablet 10 mg PO DIRECTED PRN 04/14/22 04/14/22 History (Zantac-360 (famotidine)) omeprazole magnesium 20 mg 20 mg PO BID 04/14/22 04/14/22 History tablet,delayed release (Prilosec OTC) pantoprazole 20 mg tablet,delayed 20 mg PO DIRECTED 04/14/22 04/14/22 History release (Protonix) simethicone 80 mg chewable tablet 80 mg PO DIRECTED PRN 04/14/22 04/14/22 History Patient History Social History Smoking Status: Never smoker Tobacco Type: E-cigarettes / Vaping Hx Alcohol Use: No Hx Substance Use: Yes Preferred Language: Czech Communication Ability: Effective Client Services Director Required: No Beliefs That Will Affect Care: None Current Living Situation: Alone Other Information That Helps Us Care for You: No Feels Safe at Home: No Is there a partner from a previous relationship who is making you feel unsafe now?: No Any Concerns about Your Family Situation: No Would You Like to Speak to Someone About Your Situation: No Safety Concerns: Feels Safe At This Time Assistive Devices: None Review of Systems Constitutional: no fever and no chills Respiratory: no cough and no dyspnea Cardiovascular: no chest pain Gastrointestinal: + abdominal pain and + heartburn; no change in bowel habits and no blood in stools Psychiatric: no problem reported Hematologic / Lymphatic: no unexplained weight loss Physical Exam Constitutional: well developed Respiratory: normal respiratory effort Cardiovascular: Rate/Rhythm: regular rate Gastrointestinal (Abdomen): Inspection/Auscultation: abdomen normal to inspection Musculoskeletal: Head/Neck/Chest: normocephalic Skin: no rashes Psychiatric: Orientation: alert and oriented x 3 Results & Data ([facility]) Vital Signs (Past 12 Hours) Vital Signs Temp Pulse Resp BP Pulse Ox 04/17/22 07:55 36.6 C 56 L 16 131/69 99 04/16/22 22:58 36.6 C 53 L 16 147/78 H 98 PG Care Time/CCT Total # of Minutes Spent Total Time Spent with Patient: Total time spent is greater than 50% in coordination of care (as documented) at patient's floor/unit and/or counseling patient: Coding Level of Care Code 31730 Inpt Consult Level 4 Diagnoses GERD (gastroesophageal reflux disease) K21.9 Abdominal pain R10.9 Abdominal location: unspecified location (1) Abdominal pain Abdominal location: unspecified location Qualified Code(s): R10.9 - Unspecified abdominal pain
[2022-04-17] MEDS: MoRPHine SULFATE 2 MG/ML CARP IV PRN (11:00)
--- NOTE | 2022-04-17 12:26 | Anesthesiology Consultation ---
Date of Service April 17, 2022 Assessment & Plan Chart Review Chart Review: Acceptable Risk for Surgery, Patient NOT seen in Pre Admission Testing and entry table operator initiated Consults Requested none ASA ASA2 Proposed Anesthesia Anesthesia Type: MAC Risk / Benefits Reviewed With: PT / POA / Parent / Guardian, Accepts Plan and Informed Consent Obtained History Surgery Operation Date: 04/17/22 17:15 Proposed Procedures p Esophagogastroduodenoscopy Dr Linton - Cale Linton, DO Height/Weight Height: 5 ft 8 in Weight: 66.5 kg Allergies Allergy/AdvReac Type Severity Reaction Status Date / Time No Known Allergies Allergy Verified 04/17/22 12:14 Medications Home Medications Medication Instructions Recorded Confirmed Last Taken aluminum-mag hydroxide-simethicone 5 ml PO DIRECTED PRN 04/14/22 04/14/22 04/14/22 400 mg-400 mg-40 mg/5 mL oral susp (Mylanta Maximum Strength) calcium carbonate 200 mg calcium 400 mg PO DIRECTED PRN 04/14/22 04/14/22 04/14/22 (500 mg) chewable tablet (Tums) famotidine 10 mg tablet 10 mg PO DIRECTED PRN 04/14/22 04/14/22 Unknown famotidine 10 mg tablet 10 mg PO DIRECTED PRN 04/14/22 04/14/22 Unknown (Zantac-360 (famotidine)) omeprazole magnesium 20 mg 20 mg PO BID 04/14/22 04/14/22 04/14/22 tablet,delayed release (Prilosec OTC) pantoprazole 20 mg tablet,delayed 20 mg PO DIRECTED 04/14/22 04/14/22 04/14/22 release (Protonix) simethicone 80 mg chewable tablet 80 mg PO DIRECTED PRN 04/14/22 04/14/22 04/14/22 Active Medications Generic Name Dose Route Start Last Admin Trade Name Freq PRN Reason Stop Dose Admin Al Hydrox/Mg Hydrox/ 0 ml 04/14/22 20:48 04/16/22 15:25 Simethicone 72 ml/ Lidocaine PO 05/14/22 20:47 24 ml HCl 24 ml/ BARCODE IDENTIFIER Q4H PRN Administration 1 ea Heartburn Lactated Ringer's 1,000 mls @ 125 mls/hr 04/14/22 19:19 04/17/22 11:41 Lr IV 05/14/22 19:18 0 mls/hr .Q8H PACO Infusion Pantoprazole Sodium 40 mg/ 10 mls @ 5 mls/min 04/15/22 09:00 04/17/22 08:03 Syringe IV 05/15/22 08:59 5 mls/min BID PACO Administration Acetaminophen 1,000 mg in 100 mls @ 400 mls/hr 04/15/22 03:07 04/16/22 00:15 Ofirmev IV 04/18/22 03:06 Infused Q8H PRN Infusion Pain Famotidine 20 mg/ Syringe 5 mls @ 2.5 mls/min 04/15/22 21:00 04/17/22 08:03 IV 05/15/22 20:59 2.5 mls/min BID PACO Administration Morphine Sulfate 2 mg 04/16/22 17:32 04/17/22 11:00 Morphine Sulfate 2 Mg/Ml Carp IV 04/30/22 17:31 2 mg Q4 PRN Administration Pain Scale: 2,3,4,5,6 Ondansetron HCl 4 mg 04/14/22 19:19 04/17/22 09:38 Ondansetron Inj 2 Mg/Ml 2 Ml Vial IV 05/14/22 19:18 4 mg Q4H PRN Administration nausea or vomiting Sucralfate 1 gm 04/15/22 13:00 04/15/22 20:11 Sucralfate 1 Gm/10 Ml Udc PO 05/15/22 12:59 1 gm QID PACO Administration NPO Date Last Intake of Fluids: 04/16/22 Time Last Intake of Fluids: 22:00 Date Last Intake of Solids: 04/13/22 Time Last Intake of Solids: 19:00 Exercise / Class Metabolic Activity 1 > 8 Run/Swim/Ski/Tennis Past Anesthesia History No Hx of Anesthesia Complications and No Family Hx of Anesthesia Complications History of PONV No Hx of PONV and No Hx of Motion Sickness Social History Smoking Status: Never smoker Hx Alcohol Use: No Hx Substance Use: Yes substance use type: marijuana Physical Exam Vital Signs Last Vital Signs Temp 36.7 C 04/17/22 12:14 Pulse 48 L 04/17/22 12:14 Resp 18 04/17/22 12:14 BP 146/85 H 04/17/22 12:14 Pulse Ox 98 04/17/22 12:14 ENMT Mouth: + chipped teeth; no loose teeth Thyromental Distance: > or= 3.5 Finger Breadths Mallampati Class: I Neck normal visual inspection and trachea midline; neck extension not limited Respiratory normal respiratory effort; no respiratory distress Auscultation: lungs clear to auscultation bilaterally; no crackles, no rhonchi and no wheezes Cardiovascular Rate/Rhythm: regular rate and regular rhythm Heart Sounds: no gallop, no murmur and no cardiac rub Neurologic moves all extremities and awake Psychiatric Orientation: alert Testing Laboratory Results 04/17/22 08:12 04/17/22 08:12 Urine Color Dark Yellow 04/14/22 11:52 Urine Appearance Clear (Clear) 04/14/22 11:52 Urine pH 7.5 (4.5-7.5) 04/14/22 11:52 Ur Specific [place] 1.025 (1.000-1.030) 04/14/22 11:52 Urine Protein Negative (Negative) 04/14/22 11:52 Urine Glucose (UA) Negative (Negative) 04/14/22 11:52 Urine Ketones 3+ (Negative) H 04/14/22 11:52 Urine Nitrite Negative (Negative) 04/14/22 11:52 Ur Leukocyte Esterase Negative (Negative) 04/14/22 11:52
[2022-04-17] MEDS ORDERED: fentaNYL citrate 100 MCG/2 ML VIAL ONE (13:16)
[2022-04-17] MEDS ORDERED: LIDOCAINE 2% 2 ML VIAL/AMP(20MG/ML) INFIL ONE (13:16)
[2022-04-17] MEDS ORDERED: PROPOFOL IV EMULSION 10 MG/ML 20 ML VIAL IV ONE (13:16)
--- NOTE | 2022-04-17 13:29 | GI REPORT ---
Patient Name: Tyson Donis Procedure Date: 04/17/2022 1:03 PM Date of : 1995 Admit Type: Inpatient Age: 26 Gender: Male Attending MD: Cale Linton DO Procedure: Upper GI endoscopy Providers: Cale Linton DO Referring MD: Xander Caba Indications: Odynophagia, Suspected gastro-esophageal reflux disease Medicines: Monitored Anesthesia Care Complications: No immediate complications. Estimated Blood Loss: Estimated blood loss: none. Procedure: Pre-Anesthesia Assessment: - Prior to the procedure, a History and Physical was performed, and patient medications and allergies were reviewed. The patient's tolerance of previous anesthesia was also reviewed. The risks and benefits of the procedure and the sedation options and risks were discussed with the patient. All questions were answered, and informed consent was obtained. Prior Anticoagulants: The patient has taken no previous anticoagulant or antiplatelet agents. ASA Grade Assessment: II - A patient with mild systemic disease. After reviewing the risks and benefits, the patient was deemed in satisfactory condition to undergo the procedure. After obtaining informed consent, the endoscope was passed under direct vision. Throughout the procedure, the patient's blood pressure, pulse, and oxygen saturations were monitored continuously. The Endoscope was introduced through the mouth, and advanced to the second part of duodenum. The upper GI endoscopy was accomplished without difficulty. The patient tolerated the procedure well. Findings: The examined esophagus was normal. Biopsies were taken with a cold forceps for histology from the mid-esophagus. Localized mild inflammation characterized by erythema was found in the gastric antrum. Biopsies were taken with a cold forceps for histology. The examined duodenum was normal. Biopsies for histology were taken with a cold forceps for evaluation of celiac disease. Impression: - Normal esophagus. Biopsied. - Gastritis. Biopsied. - Normal examined duodenum. Biopsied. Recommendation: - [facility]. - Advance diet as tolerated. - Await pathology results. - Continue present medications. Cale Linton DO 04/17/2022 1:29:11 PM This report has been signed electronically. Note Initiated On: 04/17/2022 1:03 PM Number of Addenda: 0 I attest to the content of the Intraoperative Record and orders documented therein, exceptions below {[id number]}
--- NOTE | 2022-04-17 15:25 | Anesthesiology Progress Note ---
Date of Service April 17, 2022 Anesthesia Post Procedure Vital Signs Vital Signs: Temp Pulse Resp BP Pulse Ox 04/17/22 14:01 54 L 18 143/96 H 98 04/17/22 13:47 67 18 135/97 98 04/17/22 13:31 80 16 139/82 94 04/17/22 12:14 36.7 C 48 L 18 146/85 H 98 04/17/22 07:55 36.6 C 56 L 16 131/69 99 04/16/22 22:58 36.6 C 53 L 16 147/78 H 98 Pain Intensity Upper Abdomen: Pain Intensity: 2 Bilateral Shoulder: Pain Intensity: 4 Transfer of Care Handoff Completed per policy Notes Mental Status: alert / awake / arousable and participated in evaluation Patient Amnestic to Procedure: Yes Nausea / Vomiting: adequately controlled Pain: adequately controlled Airway Patency, RR, SpO2: stable & adequate BP & HR: stable & adequate Hydration State: stable & adequate Anesthetic Complications: no major complications apparent and Pt Satisfied with anesthetic care
--- NOTE | 2022-04-17 15:35 | Discharge Summary ---
Date of Service April 17, 2022 Admission HPI Per Admitting Provider Tyson Donis 26 year old male who presents to the ER with severe chest and abdominal pain. He reports pain started on waking him up this morning. So severe he felt he couldn't catch his breath with associated nausea and vomiting. Associated acid taste in the back of his mouth. He felt this was the worst reflux pain he has ever had to the point he was in tears. This is on a background of longstanding GERD requiring multiple EGDs in the past although none recently. He takes Tums and Mylanta regularly for year. The last 1.5-2 months his heartburn has been getting progressively worse again and he was taking omeprazole and famotidine over the counter in addition to antacids. His symptoms became worse and he switched taking the famotidine for pantoprazole 40mg PO BID (in addition to the omeprazole and antacids). He reports the pain is worse with spicy foods. He has associated dysphagia with thick foods. Also occasionally coughing up black phlegm. In the ER he underwent RUQ US showed mild edema of the gallbladder wall equivocal for acute cholecystitis. General surgery were consulted and felt this was unlikely acute cholecystitis. He was given Toradol for the pain and GI cocktail. He was referred to medicine for admission and ongoing management of ? cholecystitis. Principal Diagnosis gastritis Discharge Exam The patient appeared stable Vital signs as documented. Lungs are clear to auscultation and appear unlabored Cardiac exam, Rhythm is regular.. No murmurs, rubs or gallops. Abdominal exam reveals normal bowel sounds, soft non tender, no masses Extremities are nonedematous and both pedal pulses are normal. Neurologic exam is alert and oriented, no focal loss of strength or sensation Skin is without bruises or rashes Psychologically is without concerns for anxiety or depression. Discharge Data Allergies Allergy/AdvReac Type Severity Reaction Status Date / Time No Known Allergies Allergy Verified 04/17/22 12:14 Consultations 04/14/22 14:47 Consult General Surgery Stat 04/14/22 15:56 ED Decision to Admit Stat 04/14/22 16:43 Consult Gastroenterology Routine 04/16/22 09:00 Consult Gastroenterology Routine Procedures Performed Operation Date: 04/17/22 17:15 Actual Procedures p EGD Biopsy Cytology - Cale Marrero Case, DO gastritis biopsied normal esophagus and duodenum Ordered Studies 04/14/22 11:43 US gallbladder Stat 04/16/22 17:42 CT angio chest PE protocol Routine Hospital Course (1) GERD (gastroesophageal reflux disease): Tyson is a 26-year-old male with a past medical history of GERD, abdominal pain, and concern for food allergy who was last worked up by GI in 2008 and who presented with worsened nausea/vomiting/abdominal pain in the setting of numerous antacid and PPI use. Abdominal pain, . History of GERD Gastritis suspected on admission HIDA scan negative for cholecystitis Patient denies melena, reports ribbony brown stool with mucus Acute hemoglobin drop from 15.1-12.8. Dilutional drop. no obvious source of blood loss - GI consulted Recommended for Protonix 40 twice daily, famotidine 20 mg twice daily, Due to worsening please postprandially patient was taken for EGD which only showed gastritis. Patient recommended advancement of diet and continue the above listed recommendations as an outpatient (2) Thickening of wall of gallbladder: - Low suspicion of acute cholecystitis since majority of his pain is epigastric with longstanding history of GERD and normal WBC/LFTs HIDA scan obtained following admitting discussion with surgery, this did not show evidence of acute cholecystitis Gallbladder disease has been ruled out (3) Abdominal pain: As previously noted Patient's had longstanding history of gastrointestinal issues with multiple outpatient work-ups in the past. Patient should continue to employ elimination diet take his acid reducing agents and consider further evaluation with local digital camera technician if he wishes. Total Time Total Time Spent Total Time Spent (In Minutes): It required greater than 30 minutes to prepare this patient for discharge Discharge Plan Discharge Items Patient Disposition: Home - Self-Care Reason For Visit: ABDOMINAL PAIN Discharge Diagnosis: Gastritis Activity: Resume your previous activity Non-emergency contact: Primary Care Provider Call non-emergency contact if: your symptoms worsen and you have a fever Follow-up/Referrals: PCP,NO [Primary Care Provider] - Diet: Gluten Free and Lactose Intolerant Addtl Attending Provider Instructions: although you were not officially diagnosed with food related symptoms and you did have some esophagitis that can be seen with just acid reflux, but since you mentioned that there have been discussions of Eosinophilic Esophagitis in the past Research shows a strong connection between food allergies and eosinophilic esophagitis (EOE). These six foods are most commonly associated with this allergic response:dairy, wheat, soy, eggs, nuts, and seafood/shellfish. Please continue on twice a day acid supression medication for 6 weeks and follow up with your local primary care provider. the testing on your gall bladder has ruled out active gall bladder disease at this time Pending Studies at Discharge: Yes (biopsies from endoscopy) Stand-Alone Forms: My [facility], Smoking Cessation Medications and DC Order Prescriptions: New famotidine 20 mg tablet 20 mg PO BID 42 Days Qty: 84 RF: 0 Continued calcium carbonate [Tums] 200 mg calcium (500 mg) Tablet,Chewable 400 mg PO DIRECTED PRN (Reason: HEARTBURN/INDIGESTION) RF: 0 alum-mag hydroxide-simeth [Mylanta Maximum Strength] 400-400-40 mg/5 mL Suspension 5 ml PO DIRECTED PRN (Reason: HEARTBURN/INDIGESTION) RF: 0 Changed pantoprazole [Protonix] 20 mg Tablet,Delayed Release (Dr/Ec) 20 mg PO BID Qty: 90 RF: 0 Discontinued famotidine 10 mg Tablet 10 mg PO DIRECTED PRN (Reason: HEARTBURN/INDIGESTION) RF: 0 famotidine [Zantac-360 (famotidine)] 10 mg Tablet 10 mg PO DIRECTED PRN (Reason: HEARTBURN/INDIGESTION) RF: 0 omeprazole magnesium [Prilosec OTC] 20 mg Tablet,Delayed Release (Dr/Ec) 20 mg PO BID RF: 0 No Action simethicone 80 mg Tablet,Chewable 80 mg PO DIRECTED PRN (Reason: HEARTBURN/INDIGESTION) RF: 0 Discharge Orders: Discharge Order (Routine); Ordered 04/17/22 Ordered By: Xander Caba Admission Data Admit Date/Time: 04/17/22 11:19 Attending Provider: Xander Caba Admit Provider: Juan Carlos Rizzo Primary Care Provider: PCP,NO Other Providers: Leonard Orellana ; Juan Carlos Rizzo ; Cale Linton ; Comfort Nicolas Coding Level of Care Code D/C DAY MANAGEMENT >30 MINS Diagnoses GERD (gastroesophageal reflux disease) K21.9 Thickening of wall of gallbladder K82.8 Abdominal pain R10.9 Abdominal location: unspecified location
== END 2022-04-17 17:38 | disposition home or self-care (01) | DRG 392 ==
LOC: ED 11:24 → 3W 11:24 → SUATTDRO 16:12 → 3W 18:36